=== PATIENT | female | born 1990 | race Caucasian/White ===

== ENCOUNTER 2017-05-09 06:42 | Emergency (ER) | payer OTHER ==
[~2017-05-09] VITALS: Ht 175.3 cm; Wt 77.1 kg
[~2017-05-09 06:42] MED LIST: AUBRA PO; METHERGINE0.2 M1 PO
[2017-05-09 06:46] VITALS: BP 151/98
--- NOTE | 2017-05-09 07:32 | ED CARDIAC/CP/PALPITATIONS ---
History of Present Illness General Chief Complaint: Chest Pain Stated Complaint: CP SINCE 4 AM Source: patient Exam Limitations: no limitations Vital Signs & Intake/Output Vital Signs & Intake/Output Vital Signs Date Time Temp Pulse Resp B/P B/P Pulse O2 O2 Flow FiO2 Mean Ox Delivery Rate 05/09 0743 Room Air Room Air 05/09 0646 98.7 82 18 151/98 99 Room Air Allergies Coded Allergies: venom-honey bee (BEE VENOM (HONEY BEE)) (Intermediate, SWELLING 05/24/16) Sulfa (Sulfonamide Antibiotics) (THROAT CLOSURE 05/24/16) Reconcile Medications Cyclobenzaprine HCl 10 MG TABLET 1 TAB PO Q8P PRN PAIN/SPASM Triage Note: C/O LEFT SIDED CHEST AND RIB PAIN SINCE 399, WOKE UP WITH PAIN, RADIATES TO LEFT SHOULDER. DENIES FALL OR INJURY. PAIN UNREILIVED BY TUMS. EKG DONE ON ARRIVAL. Triage Nurses Notes Reviewed? yes : No Patient currently breastfeeds: No HPI: Patient was woken up morning with a sharp stabbing pain to her left side of her chest. Pain is constant. There is no radiation. Pain increases when she twists her upper torso or takes a deep breath. Patient does not know of any injury. Patient denies any shortness of breath except when she is taking deep breath at that point she feels the sharp pain and feeling short of breath because of that. There are no fevers or chills. She rates the pain as 7 out of 10. Pain is been constant since 4 AM she comes in for evaluation. Past History Travel History Traveled to [place] past 21 day No Medical History Any Pertinent Medical History? none Neurological: NONE EENT: NONE Cardiovascular: NONE Respiratory: NONE Gastrointestinal: NONE Hepatic: NONE Renal: NONE Musculoskeletal: NONE Endocrine: NONE Surgical History Surgical History: non-contributory Psychosocial History What is your primary language Slovak Tobacco Use: Never used ETOH Use: occasional use Illicit Drug Use: denies illicit drug use Family History Hx Contributory? No Review of Systems Review of Systems Constitutional: Reports: no symptoms. EENTM: Reports: no symptoms. Respiratory: Reports: see HPI, short of breath (WITH DEEP INSPIRATION). Cardiovascular: Reports: see HPI, chest pain. GI: Reports: no symptoms. Genitourinary: Reports: no symptoms. Musculoskeletal: Reports: no symptoms. Skin: Reports: no symptoms. Neurological/Psychological: Reports: no symptoms. Hematologic/Endocrine: Reports: no symptoms. Immunologic/Allergic: Reports: no symptoms. All Other Systems: Reviewed and Negative Physical Exam Physical Exam General Appearance: well developed/nourished, alert, awake, mild distress Head: atraumatic, normal appearance Eyes: Bilateral: PERRL, EOMI. Ears, Nose, Throat: normal pharynx, normal ENT inspection, hearing grossly normal Neck: normal inspection, supple, full range of motion, NO JVD Respiratory: normal breath sounds, no respiratory distress, lungs clear, TENDER TO PALP Cardiovascular: regular rate/rhythm, normal peripheral pulses Gastrointestinal: normal bowel sounds, soft, non-tender, no organomegaly Back: normal inspection, normal range of motion Extremities: normal inspection, normal capillary refill, normal range of motion, no edema Neurologic/Psych: no motor/sensory deficits, awake, alert, oriented x 3, normal gait, normal mood/affect Skin: intact, normal color, warm/dry Lymphatic: no anterior cervical garcia Core Measures ACS in differential dx? No Severe Sepsis Present: No Septic Shock Present: No All Positive = PERC Ruled Out: Positive: age < 50 years, heart rate < 100 bpm, O2 sat > 94%, no hemoptysis, no hormone use, no prior DVT or PE, no unilateral leg swellin, no surgery/trauma w/ in 4w. Progress Differential Diagnosis: costochondritis, musculoskeletal pain, pulmonary embolism Plan of Care: Orders Procedure Date/time Status HUMAN BETA HCG SCREEN 05/09 0731 Complete D-DIMER 05/09 0731 Complete COMPREHENSIVE METABOLIC PANEL 05/09 0731 Complete CBC WITHOUT DIFFERENTIAL 05/09 0731 Complete EKG 05/09 0643 Active Laboratory Tests 05/09/17 0752: Anion Gap 9, Estimated GFR > 60, BUN/Creatinine Ratio 15.0, Glucose 78, Calcium 9.3, Total Bilirubin 1.0, AST 18, ALT 36, Alkaline Phosphatase 42, Total Protein 6.7, Albumin 4.0, Globulin 2.7, Albumin/Globulin Ratio 1.5, Total Beta HCG NEGATIVE, D-Dimer High Sensitivty < 200, CBC w Diff NO MAN DIFF REQ, RBC 4.83, MCV 84.6, MCH 28.1, RDW 12.7, MPV 10.2, Gran % 52.0, Lymphocytes % 34.3, Monocytes % 11.8 H, Eosinophils % 1.5, Basophils % 0.4, Absolute Granulocytes 1.8, Absolute Lymphocytes 1.2, Absolute Monocytes 0.4, Absolute Eosinophils 0, Absolute Basophils 0, PUBS MCHC 33.2 Initial ED EKG: NSR, no ST T wave changes Comments: PT NOW REMEBERS THAT SHE WAS COUGHING LAST NIGHT AND HAD A SUDDEN STABBING PAIN IN THE SAME AREA. THE PAIN THEN WENT AWAY AND THEN WOKE HER UP AT 4AM. Departure Departure Disposition: HOME OR SELF CARE Condition: Stable Clinical Impression Primary Impression: Chest wall pain Referrals: DONATO BRAND,CARMINA Sheriff (PCP/Family) Additional Instructions: RETURN IF SYMPTOMS WORSEN OR FOR ANY CONCERNS Departure Forms: Customer Survey General Discharge Information Prescriptions: Current Visit Scripts Cyclobenzaprine HCl 1 TAB PO Q8P PRN PAIN/SPASM #20 TAB Critical Care Note Critical Care Note Critical Care Time: non-applicable
[2017-05-09 08:11] LABS: ABSOLUTE BASOPHIL COUNT 0 /CUMM (0.0-0.2); ABSOLUTE EOSINOPHIL COUNT 0 /CUMM (0.0-0.7); ABSOLUTE GRANULOCYTE CT 1.8 /CUMM (1.4-6.5); ABSOLUTE LYMPH COUNT 1.2 /CUMM (1.2-3.4); ABSOLUTE MONOCYTE COUNT 0.4 /CUMM (0.10-0.60); BASOPHIL % 0.4 % (0.0-2.0); EOSINOPHIL % 1.5 % (0-5); HEMATOCRIT 40.9 % (37-47); MEAN CORPUSCULAR HGB 28.1 PG (27.0-31.0); MEAN CORPUSCULAR HGB CONC 33.2 G/DL (33.0-37.0); MEAN CORPUSCULAR VOLUME 84.6 FL (81.0-99.0); MEAN PLATELET VOLUME 10.2 FL (7.4-10.4); PLATELET COUNT 145 /CUMM (130-400); RBC DISTRIBUTION WIDTH 12.7 % (11.5-14.5); RED BLOOD CELL CT 4.83 /CUMM (4.20-5.40); WHITE BLOOD CELL COUNT 3.4 /CUMM (4.8-10.8)
[2017-05-09] MEDS ORDERED: CYCLOBENZAPRINE10 M1 PO (09:43)
== END 2017-05-09 10:00 ==
LOC: ERH 06:42
PROVIDERS: Emergency Medicine
DX: R07.89 Other chest pain (principal)
CPT/HCPCS: 93005; 93010; 96372; J1885